=== PATIENT | male | born 1955 | race Caucasian/White ===

== ENCOUNTER → 2020-08-03 | Outpatient (CLI) | payer OTHER | END | disposition home or self-care (01) | LOC: OIH 10:35 | PROVIDERS: ATTEND Internal Medicine Cardiovascular Disease | DX: Z13.6 Encounter for screening for cardiovascular disorders (principal) | CPT/HCPCS: 75571 ==

== ENCOUNTER → 2020-08-12 | Outpatient (CLI) | payer MEDICAID | END | disposition home or self-care (01) | LOC: SHCH 09:52 | PROVIDERS: ATTEND Internal Medicine Cardiovascular Disease | DX: R06.00 Dyspnea, unspecified (principal) | CPT/HCPCS: 93306; 93356 ==

== ENCOUNTER → 2023-06-29 | Outpatient (CLI) | payer OTHER, MEDICARE | END | disposition home or self-care (01) | LOC: RAH 08:47 | PROVIDERS: ATTEND Family Medicine | DX: R59.0 Localized enlarged lymph nodes (principal); E78.5 Hyperlipidemia, unspecified; F41.9 Anxiety disorder, unspecified; F32.A Depression, unspecified; K21.9 Gastro-esophageal reflux disease without esophagitis; M67.461 Ganglion, right knee; M67.462 Ganglion, left knee; E66.9 Obesity, unspecified; Z68.31 Body mass index [BMI] 31.0-31.9, adult; Z98.890 Other specified postprocedural states; Z79.899 Other long term (current) drug therapy | CPT/HCPCS: 38505; 88305; 76942; A4215 ×2 ==

== ENCOUNTER → 2024-08-07 | Outpatient (CLI) | payer OTHER, MEDICARE ==
--- NOTE | 2024-08-08 14:35 | HMCSR ---
APPROVED REPORT EXAM: Two-dimensional and M-mode echocardiogram with Doppler and color Doppler. INDICATION ICD: Syncope and collapse R55 2D Dimensions RVDd3.9 cmLVEF(%)47.1 (>50%)LVED Vol(simp.)89.0 mL IVSd1.5 (0.7-1.1cm)FS(%)23 %LVES Vol(simp.)45.0 mL LVDd4.2 (3.8-5.6cm)Ao Root(2D)4.2 (2.0-3.7cm)LVEF(%, simp.)50 % PWd1.2 (0.7-1.1cm)LVOT diam2.3 (1.8-2.4cm)LA ESV INDEX (BP)20.30 mL/m2 LVDs3.2 (2.5-4.0cm)IVC diam2.5 cm Aortic Valve AoV Vmax1.1 m/Ai Peak GR5.1 mmHgLVOT Vmax1.0 m/s AoV VTI0.2 mAo Mean GR2.9 mmHgLVOT VTI0.21 m JOHN (VMAX)3.5 cm2AVA (VTI) 3.5 cm2 Mitral Valve MV E Vmax70.0 cm/sDECEL Qjzt583 ms MV A Vmax85.0 cm/sP 1/2 T50 ms E/A ratio0.8MVA (PHT)4.4 cm2 MR Max PG99 mmHg TDI E/E' Hphklw28.8E/E' Lateral8.6 Pulmonary Valve PV Vmax0.8 m/sPV VTI0.17 mPV Mean GR1 mmHg PV Peak GR2.4 mmHg Tricuspid Valve TR Vmax2.2 m/sRAP (EST) 8 hiLkAXQX19.1 mmHg TR Peak GR20.1 mmHg Left Ventricle The left ventricle structure and function is normal. There is mild to moderate concentric left ventri cular hypertrophy. LVEF is 45-50%. Stage I diastolic dysfunction. Right Ventricle The right ventricle is normal size. The right ventricular systolic function is normal. Atria The left atrium size is normal. The right atrium size is normal. Aortic Valve Aortic valve is trileaflet. Aortic valve leaflets are sclerotic but open well. No aortic regurgitatio n is present. There is no aortic valvular stenosis. Mitral Valve Mitral valve leaflets are sclerotic but open well. Mitral regurgitation is trace. There is no mitral valve stenosis. Tricuspid Valve The tricuspid valve leaflets appear normal. There is trace tricuspid regurgitation. Pulmonic Valve The pulmonic valve leaflets appear normal. There is no pulmonic valvular regurgitation. Great Vessels The aortic root is moderately enlarged. 4.0 cm. IVC is dilated and collapses >50% with inspiration. Pericardium No pericardial effusion. Conclusion There is mild to moderate concentric left ventricular hypertrophy. LVEF is 45-50%. Stage I diastolic dysfunction. Aortic valve is trileaflet. Aortic valve leaflets are sclerotic but open well. Mitral regurgitation is trace. The aortic root is moderately enlarged. 4.0 cm.
== END | disposition home or self-care (01) ==
LOC: SHCH 14:47
PROVIDERS: ATTEND Internal Medicine Cardiovascular Disease
DX: I08.0 Rheumatic disorders of both mitral and aortic valves (principal); R55 Syncope and collapse
CPT/HCPCS: 93306